=== PATIENT | female | born 1970 | race Caucasian/White ===

== ENCOUNTER 2017-01-08 12:49 | Emergency (ER) | payer OTHER ==
[~2017-01-08] VITALS: Ht 170.2 cm; Wt 65.5 kg
[~2017-01-08 12:49] MED LIST: ACIPHEX20 MG; ACIPHEX20 MG PO; AMITRIPTYLINE H50 MG PO; CENTURY CARDIO1 EAC1; CLEOCIN300 MG PO; CLONAZEPAM1 MG PO; DOXYCYCLINE HY100 MG PO; FLEXERIL10 MG PO; LEVOTHYROXINE25 MCG PO; METHADONE10 MG PO; OXYCODONE-APAP1 EACH PO; OXYMORPHONE HCL15 MG PO; PERCOCET 10-321 EACH PO; PRILOSEC40 MG PO; PROPRANOLOL HCL40 MG PO; RELPAX20 MG PO; TIZANIDINE HCL4 MG PO; VICODIN,LORT1 TABLET PO; VITAMIN B12-FO1 EACH; ZOFRAN ODT4 MG PO
[2017-01-08] MEDS ORDERED: REMERON15 M2 PO (14:00)
[2017-01-08] MEDS ORDERED: TIZANIDINE HCL4 MG PO (14:01)
[2017-01-08] MEDS ORDERED: LISINOPRIL10 MG PO (14:01)
[2017-01-08] MEDS ORDERED: LIBRIUM25 MG PO (14:29)
[2017-01-08 14:48] VITALS: BP 136/74
== END 2017-01-08 14:49 | disposition home or self-care (01) ==
LOC: EME 12:49
DX: F13.239 Sedative, hypnotic or anxiolytic dependence with withdrawal, unspecified (principal); Z90.710 Acquired absence of both cervix and uterus; Z79.891 Long term (current) use of opiate analgesic
CPT/HCPCS: 99281; 99284